=== PATIENT | male | born 1960 ===

== ENCOUNTER 2020-12-25 19:06 | Emergency (ER) | payer SELFPAY ==
[~2020-12-25] VITALS: Ht 182.9 cm; Wt 114.0 kg
--- NOTE | 2020-12-25 20:37 | NUR ---
[facility] PT LABS NORMAL FROM [facility]. TWO PT IN LINE BEFORE THIS PT.
--- NOTE | 2020-12-25 20:44 | NUR ---
sbar from [facility]. patient in bed, rails up
[2020-12-25] MEDS ORDERED: OMNIPAQUE 350 MG/ML, 100ML BOTTLE ONE (21:24)
[2020-12-25] MEDS ORDERED: HYDROmorphone 1 MG/ML, 1ML INJ ONE (22:22)
[2020-12-25] MEDS ORDERED: ONDANSETRON 2MG/ML, 2ML ONE (22:23)
[2020-12-25] MEDS ORDERED: ONDANSETRON 2MG/ML, 2ML IVPush ONE (22:30)
[2020-12-25] MEDS ORDERED: HYDROmorphone 1 MG/ML, 1ML INJ IV ONE (22:30)
[2020-12-25 22:31] VITALS: BP 180/98
--- NOTE | 2020-12-25 22:50 | NUR ---
discharge teaching reviewed. daughter here and upset at narcotic situation that md who was according her lost his license secondary to malpractice for narc rx's whom she believes made her father addicted to pain medications. listened and reviewed discharge instructions. daughter driving home. vss. patient feeling improvement.
== END 2020-12-25 22:54 | disposition home or self-care (01) ==
LOC: ED 19:30
DX: R10.31 Right lower quadrant pain (principal); R10.32 Left lower quadrant pain; R11.2 Nausea with vomiting, unspecified; R10.13 Epigastric pain; R94.31 Abnormal electrocardiogram [ECG] [EKG]; I10 Essential (primary) hypertension; G89.29 Other chronic pain
CPT/HCPCS: 74177; 93005; 96374; 96375; 99285; J1170; J2405; Q9967